=== PATIENT | male | born 1960 ===

== ENCOUNTER 2025-03-22 06:00 | Day surgery (SDC) | payer OTHER ==
[2025-03-20 11:01] LABS: BASO % 0.8 % (0.1-1.2); EOS # 0.10 (0.04-0.54); EOS % 1.5 % (0.7-7.0); LYMPH # 1.80 (1.18-3.74); LYMPH % 27.7 % (19.3-53.1); MEAN PLATELET VOLUME 10.40 fl (9.4-12.4); MONO # 0.62 (0.24-0.82); MONO % 9.5 % (4.7-12.5); NEUT # 3.92 (1.56-6.13); NEUT % 60.3 % (34.0-71.1); RED CELL DISTRIBUTION WIDTH 12.2 % (11.6-14.4)
[2025-03-20 11:15] LABS: URINE APPEARANCE Clear; URINE BILIRRUBIN Negative (NEGATIVE); URINE BLOOD Large; URINE COLOR Dark Yellow; URINE GLUCOSE Negative (NEGATIVE); URINE KETONE Trace (NEGATIVE); URINE LEUKOCYTE Negative; URINE NITRATE Negative; URINE PROTEIN 30 (NEGATIVE); URINE UROBILINOGEN 0.2 E.U./dl
[2025-03-20 11:20] LABS: COVID-19 AG NEGATIVE (NEGATIVE); URINE BACTERIA 10.7 uL (0.0-1933); URINE EPITHELIAL CELLS 3.2 uL (0.0-38.8); URINE RBC 146.0 uL (0.0-20.8); URINE WBC 4.1 uL (0.0-23.2)
[2025-03-20 11:22] VITALS: BP 150/90
[2025-03-20 11:27] LABS: URINE CAST 0.73 uL (0.0-1.40)
[2025-03-20 11:28] LABS: INR 0.97
[2025-03-20 11:49] LABS: BUN CREA RATIO 19.0 (7.0-25.0); CREATININE SERUM 1.17 mg/dL (0.70-1.30); GFR 62.76; GLUCOSE FASTING 82.0 mg/dL (65-100); OSMOLALITY SERUM 287.0 MOSM/KG (275-295)
[~2025-03-22] VITALS: Ht 175.3 cm; Wt 90.7 kg
[~2025-03-22 06:00] MED LIST: PEPCID AC20 MG PO; TAMS0.4C PO
[2025-03-22] MEDS ORDERED: CEFAZOLIN SODIUM 1,000 MG VIAL ONE (06:55)
[2025-03-22] MEDS ORDERED: CHLORHEXIDINE GLUCONATE 120 ML BOTTLE TOP ONE (07:21)
[2025-03-22] MEDS ORDERED: LIDOCAINE HCL 1% 20 ML VIAL IJ ONE (09:10)
[2025-03-22] MEDS ORDERED: TAMSULOSIN HCL 0.4 MG CAP PO STA (10:03)
[2025-03-22] MEDS ORDERED: KETOROLAC TROMETHAMINE 30 MG VIAL IV STA (10:04)
[2025-03-22] MEDS ORDERED: KETOROLAC TROMETHAMINE 30 MG VIAL ONE (11:54)
[2025-03-22] MEDS ORDERED: TAMSULOSIN HCL 0.4 MG CAP PO ONE (11:54)
== END 2025-03-22 14:05 | disposition home or self-care (01) ==
LOC: CIR.AMB 06:00
PROVIDERS: ATTEND Urology
DX: C62.11 Malignant neoplasm of descended right testis (principal)